=== PATIENT | male | born 1955 | race Caucasian/White ===

== ENCOUNTER 2017-03-27 11:36 | Emergency (ER) | payer OTHER ==
--- NOTE | 2017-03-27 13:30 | DIAGNOSTIC IMAGING REPORT ---
PROCEDURE: CT ABDOMEN/PELVIS W/O CONTRAST INDICATION: Left flank pain. Initial encounter. TECHNIQUE: Noncontrast axial images were obtained of the entire abdomen and pelvis with sagittal and coronal reformations. COMPARISON: None. FINDINGS: ABDOMEN: Normal kidneys and ureters without calculi or hydronephrosis. Calcified hepatic granuloma. The gallbladder, pancreas, spleen and adrenal glands are normal. Mild atherosclerosis of the aorta. Nonspecific bowel gas pattern. Minor right basilar scarring. Heart size is normal. PELVIS: 1.5 cm right bladder subtle radiodensity. Mildly enlarged prostate (5 cm). Normal appendix. No inflammatory changes or free fluid. Mild degenerative changes of the spine. IMPRESSION: 1. No evidence of urinary calculi or hydronephrosis 2. 1.5 cm right bladder subtle radiodensity. This could represent a hematoma or possibly a bladder mass. Recommend bladder ultrasound. 3. Enlarged prostate 4. Results discussed with Dr. Pérez. All CT scans at this facility use dose modulation, iterative reconstruction, and/or weight-based dosing when appropriate to reduce radiation dose to as low as reasonably achievable.
--- NOTE | 2017-03-27 16:00 | DIAGNOSTIC IMAGING REPORT ---
PROCEDURE: US ABDOMEN ULTRASOUND-LIMITED INDICATION: PAIN TECHNIQUE: Paul scale and color Doppler sonographic images of the abdomen were obtained without comparison. COMPARISON: Abdominal CT 03/27/2017 FINDINGS: The liver is normal in size, contour, and echotexture. No mass or intrahepatic biliary dilatation. The gallbladder is normal without stones or sludge. The wall is normal thickness measuring 2.7 mm No pericholecystic fluid or Chan sign. The extrahepatic common duct is normal measuring 4.6 The pancreas is not well seen. The abdominal aorta is normal in its course and caliber. The retrohepatic inferior vena cava is patent. There is appropriate hepatopetal flow in the portal vein. The right kidney measures 10.5 cm in length. There is no perihepatic or perisplenic ascites. IMPRESSION: 1. Normal abdominal ultrasound.
--- NOTE | 2017-03-27 16:53 | ED NURSING NOTES ---
Clinical Report - Nurses [facility] [address] [place] [address] 03/27/2017 11:41 Patient: ANGE ABERNATHY TRIAGE Triage time 1150 AM. Acuity: LEVEL 3. Chief Complaint: ABDOMINAL PAIN. Alert. No acute distress. SEPSIS SCREEN: Sepsis Screen. Negative (no infection suspected/documented). SHANTE COMA SCORE: Shante Coma Scale: 15- eyes open spontaneously (4); best verbal response- oriented x 4 (5); best motor response- obeys commands (6). --12:00 Jackie Wilkins R.N. 11:48 03/27/17. BP: 129/80 (regular adult cuff) taken on the left arm, via an automated monitor, while lying. HR: 81. RR: 14. O2 saturation: 99% on room air. Temp: 98.7 F (oral). Pain level now: 03/28. --12:00 Jackie Wilkins R.N. Weight: 76.3 kg measured. Height/Length: 72 inches Per Patient. BMI: 22.8. --11:48 Jackie Wilkins R.N. Medications None. --11:52 Jackie Wilkins R.N. Allergies No Known Drug Allergy. --11:52 Jackie Wilkins R.N. Medication/allergy information source: the patient. --12:00 Jackie Wilkins R.N. History Arrived by private vehicle. Historian: patient. Accompanied by friend. Primary physician (None). ( Pt states about 4 days ago started to have left flank/back pain that shoots and radiates to his mid ribs. Moving makes it worst, and laying down seems to calm the pain. Pt noted to have "blood in my urine, pretty bloody" since the pain started (4 days ago) denies burning/frequency or pain upon urination. Denies any SOB, fever or chills. Pt does admit not being to a doctor for about 20 years. Here for further evaluation). The patient has had abdominal pain. Last oral intake by patient was dinner. Treatment CHILD CARE DEVELOPMENT SPECIALIST: None. PAST MEDICAL HX: Immunizations: status is unknown. SOCIAL HX: Heavy tobacco smoker (cigarette)- less than 1 pack per day. History of heavy drug use: marijuana. No alcohol use. No recent travel. No infectious disease exposure. SELF HARM ASSESSMENT: A self harm assessment was performed. The patient answered "no" to the question "Do you have thoughts of harming or killing yourself?" and "Have you recently had thoughts about harming or killing others?". FALL RISK ASSESSMENT: Fall risk assessment completed. No fall risk identified. NUTRITIONAL RISK ASSESSMENT: The nutritional risk assessment revealed no deficiencies. FUNCTIONAL ASSESSMENT: Functional assessment: no impairments noted. LEARNING NEEDS ASSESSMENT: The learning needs assessment revealed no barriers. SKIN INTEGRITY ASSESSMENT: Skin integrity risk assessment completed. No skin integrity risk identified. --12:00 Jackie Wilkins R.N. PROBLEMS: Anxiety Reaction. --11:59 Jackie Wilkins R.N. ADDITIONAL SURGERIES: no known surgeries. Interventions ID band on patient. --12:00 Jackie Wilkins R.N. PHYSICAL ASSESSMENT Ambulatory to room. GENERAL / NEURO / PSYCH: Alert. Oriented X 4. Appears in pain. HEENT: Mucous membranes are pink. RESPIRATORY: Respirations not labored. Breath sounds within normal limits. CVS: Capillary refill less than 2 seconds. GI / : Abdomen soft and nontender. Bowel sounds within normal limits. SKIN: Skin is warm and dry. --12:01 Jackie Wilkins R.N. NURSING PROGRESS NOTES 11:56 03/27/2017 Site #1 started via IV in the left antecubital space with an 20g angiocath; one attempt. Blood drawn: rainbow set. Labeled in the presence of the patient and sent to the lab. --12:01 Jackie Wilkins R.N. The initial plan of care for this patient has been created This plan of care was discussed with the patient. Patient gowned. Warming measures: blanket applied. Reassurance given. Two patient identifiers checked. Call light placed in reach. Side rails up x 1. Bed placed in lowest position. Brakes of bed on. Patient ready for evaluation- ED physician notified. --12:01 Jackie Wilkins R.N. 12:25 03/27/2017 Started bag #1 1000 mL IV Fluids IV NS (Saline); at 1000 mL/hr over 1 hour(s) via site #1 via IV pump. Allergies verified and confirmed 5 rights. IV patency established. IV site checked: no pain, redness, or swelling. IV flushed thoroughly pre- and post-medication administration. --12:25 Mercedes Martinez R.N. Patient transported to CT. (1242 PM). --12:48 Jackie Wilkins R.N. Patient returned from CT. (1251 PM). --12:51 Jackie Wilkins R.N. 12:55 03/27/17. BP: 129/74. HR: 78. RR: 14. O2 saturation: 100% on room air. Pain level now: 5/10. --12:56 Jackie Wilkins R.N. Reassurance given. The patient is calm and resting quietly. ( IV infusing, waiting on UA, will continue to monitor). GI / : The patient reports abdominal pain. Denies nausea. Call light placed in reach. Side rails up x 1. Bed placed in lowest position. Brakes of bed on. --12:56 Jackie Wilkins R.N. 13:22 03/27/2017 IV Fluids IV NS Discontinued: bag #1 completed. Total amount infused: 1000 mL. IV patency established. IV site checked: no pain, redness, or swelling. IV flushed thoroughly. --13:22 Jackie Wilkins R.N. Reassurance given. Reassessment after fluids administered. He is calm and resting quietly. Overall patient status is improved- he states feels better. GI / : Denies nausea or diarrhea. Call light placed in reach. Bed placed in lowest position. Patient waiting for radiology and CT results and disposition. --15:01 Jackie Wilkins R.N. 15:00 03/27/17. BP: 131/73. HR: 70. RR: 15. O2 saturation: 98%. Temp: 97.8 F (oral). Pain level now: 0/10. --15:01 Jackie Wilkins R.N. ( Pt aware of having to re do the US due to the gallbladder being scan instead of his bladder. Pt aware. Will monitor). --15:38 Jackie Wilkins R.N. DISPOSITION / DISCHARGE No learning barriers present. Discharge instructions provided and reviewed with the patient and spouse. Reviewed medication(s) side effects, precautions, dosing and course information. Prescription(s) given to the patient. Patient and spouse verbalized understanding. Written instructions provided in Andorran. The patient was discharged by the physician. He was discharged home and accompanied by spouse. He left the Emergency Department ambulatory and via private vehicle. Spouse driving. ( pt up voiding upon dispo, denies pain at this time, dc instructions and rx given to pt.). --17:09 Ace Kenyon R.N. 17:06 03/27/17. BP: 128/71. HR: 77. RR: 17. O2 saturation: 98%. Temp: 98.1 F. Pain level now: 0/10. --17:09 Ace Kenyon R.N. Departure time: 1709. --17:09 Ace Kenyon R.N. Locked/Released at 03/27/2017 17:31 by Jackie Wilkins R.N.
--- NOTE | 2017-03-27 16:53 | ED CLINICAL REPORT ---
Clinical Report - Physicians/Mid Levels [facility] [address] [place] [address] 03/27/2017 11:41 [id number] *This is a preliminary document and is subject to change Time Seen: 12:09; initial patient contact. LABS, X-RAYS, AND EKG Abdominal Sonogram: (1. Right bladder mass highly suspicious for a neoplasm. Recommend cystoscopy and consultation.). Study included the pelvis. Prior studies were not available for comparison. The study was interpreted by the radiologist and discussed with the radiologist. Interpretation time: 16:52. Laboratory Tests: UA-Culture if indicated: (MILA: 03/27/2017 13:30) ( MsgRcvd 03/27/2017 13:58) Final results Test Result Flag Units (Reference) URINE COLOR SHALA URINE APPEARANCE CLOUDY URINE GLUCOSE NEGATIVE (NEGATIVE) URINE BILIRUBIN ICTOTEST NEGATIVE (NEGATIVE) URINE KETONE NEGATIVE (NEGATIVE) URINE SPECIFIC GRAVITY 1.025 (1.010-1.030) URINE PH 6.0 (5.0-8.0) URINE PROTEIN 2+ (NEGATIVE) URINE UROBILINOGEN 1.0 EU/dL (0.2-1.0) URINE NITRITE NEGATIVE (NEGATIVE) URINE BLOOD 3+ (NEGATIVE) URINE LEUK ESTERASE TRACE (NEGATIVE) URINE RBC >100 (TNTC) rbc/hpf (0-1) URINE WBC 3-5 wbc/hpf (0-1) URINE EPITHELIAL CELLS RARE EPI/hpf (0-5) URINE BACTERIA NONE SEEN (NONE SEEN) URINE COMMENT CULTURE INDICATED URINE CULTURES ARE SET-UP BASED ON THE FOLLOWING CRITERIA:POSITIVE NITRITEPOSITIVE LEUKOCYTE ESTERASEGREATER THAN 10 WHITE BLOOD CELLSMODERATE (2+) OR GREATER BACTERIA CBC w Diff: (MILA: 03/27/2017 11:50) ( MsgRcvd 03/27/2017 12:25) Final results Test Result Flag Units (Reference) WHITE BLOOD COUNT 8.4 K/uL (4.5-11.5) RED BLOOD COUNT 4.92 M/uL (4.50-5.90) HEMOGLOBIN 15.0 gm/dL (13.5-17.5) HEMATOCRIT 44.6 % (41.0-53.0) MEAN CELL VOLUME 91 fL (80-100) MEAN CORPUSCULAR HGB 31 pg (26-34) MEAN CORPUSCULAR HGB CONC 34 g/dL (31-37) RED CELL DISTRIBUTION WIDTH 13.3 % (11.6-14.8) PLATELET COUNT 288 K/uL (150-400) NEUTROPHIL % 76.3 H % (50-75) LYMPH % 17.3 L % (25-40) MONO % 5.1 % (3-14) EOSINOPHIL % 1.0 % (0-4) BASOPHIL % 0.3 % (0-2) CMP: (MILA: 03/27/2017 11:50) ( MsgRcvd 03/27/2017 12:35) Final results Test Result Flag Units (Reference) GLUCOSE 128 H mg/dL (70-110) BUN 14 mg/dL (7-18) CREATININE 1.1 mg/dL (0.6-1.3) Estimated GFR >60 mL/min Estimated GFR- >60 mL/min Note: Persistent reduction over 3 months in eGFR<60 mL/min/1.73 m2 defines CKD. Patients with eGFR values>=60 mL/min/1.73 m2 may also have CKD if evidence ofpersistent proteinuria. Additional information may be foundat [email or web address].org. SODIUM 141 mmol/L (136-145) POTASSIUM 3.8 mmol/L (3.5-5.1) CHLORIDE 104 mmol/L (98-107) CARBON DIOXIDE 28 mmol/L (21-32) CALCIUM 8.5 mg/dL (8.5-10.1) TOTAL PROTEIN 7.4 g/dL (6.4-8.2) ALBUMIN 3.5 g/dL (3.3-5.0) BILIRUBIN, TOTAL 0.6 mg/dL (0.0-1.0) ALKALINE PHOSPHATASE 82 U/L (46-116) AST (SGOT) 17 U/L (15-37) ALT (SGPT) 21 U/L (12-78) . Markie Pérez Dr.
--- NOTE | 2017-03-27 16:53 | ED ORDER SUMMARY ---
..... Patient: ANGE ABERNATHY OrderSheet [facility] VisitID: [id number] [place] [address] 61y, M Registration Date/Time: 03/27/2017 ORDER SHEET Weight: 76.3 kg (measured) Allergies: No Known Drug Allergy GENERAL ORDERS: CT Abd/Pel wo Cont (Left flank pain) Urgent (12:17 03/27/2017 Art Townsend) (Ack 12:18 [facility]) (12:48 EHassan R.N.) CBC w Diff Urgent (12:18 03/27/2017 Art Townsend) (Ack 12:18 [facility]) (12:21 SRoberts R.N.) CMP Urgent (12:18 03/27/2017 Art Townsend) (Ack 12:18 [facility]) (12:21 SRoberts R.N.) UA-Culture if indicated Urgent (12:18 03/27/2017 Art Townsend) (Ack 12:18 [facility]) (13:53 EHassan R.N.) US Abdomen Limited (No) (Bladder only to evaluate findings on CT) Urgent (13:07 03/27/2017 Art Townsend) (Ack 13:08 [facility]) (14:35 EHassan R.N.) MEDICATION ORDERS: IV FLUIDS: IV NS : initial bolus none -, then 1000 mL/hr for X1 (NOW) (12:13 03/27/2017 Art Townsend) (12:25 SRoberts R.N.) ORDER SHEET NOTES: This document has not been locked and should not be saved in the medical record.
--- NOTE | 2017-03-27 16:53 | ED CLINICAL REPORT ---
Clinical Report - Physicians/Mid Levels [facility] [address] [place] [address] 03/27/2017 11:41 [id number] *This is a preliminary document and is subject to change Time Seen: 12:09; initial patient contact. LABS, X-RAYS, AND EKG Abdominal Sonogram: (1. Right bladder mass highly suspicious for a neoplasm. Recommend cystoscopy and consultation.). Study included the pelvis. Prior studies were not available for comparison. The study was interpreted by the radiologist and discussed with the radiologist. Interpretation time: 16:52. Laboratory Tests: UA-Culture if indicated: (MILA: 03/27/2017 13:30) ( MsgRcvd 03/27/2017 13:58) Final results Test Result Flag Units (Reference) URINE COLOR SHALA URINE APPEARANCE CLOUDY URINE GLUCOSE NEGATIVE (NEGATIVE) URINE BILIRUBIN ICTOTEST NEGATIVE (NEGATIVE) URINE KETONE NEGATIVE (NEGATIVE) URINE SPECIFIC GRAVITY 1.025 (1.010-1.030) URINE PH 6.0 (5.0-8.0) URINE PROTEIN 2+ (NEGATIVE) URINE UROBILINOGEN 1.0 EU/dL (0.2-1.0) URINE NITRITE NEGATIVE (NEGATIVE) URINE BLOOD 3+ (NEGATIVE) URINE LEUK ESTERASE TRACE (NEGATIVE) URINE RBC >100 (TNTC) rbc/hpf (0-1) URINE WBC 3-5 wbc/hpf (0-1) URINE EPITHELIAL CELLS RARE EPI/hpf (0-5) URINE BACTERIA NONE SEEN (NONE SEEN) URINE COMMENT CULTURE INDICATED URINE CULTURES ARE SET-UP BASED ON THE FOLLOWING CRITERIA:POSITIVE NITRITEPOSITIVE LEUKOCYTE ESTERASEGREATER THAN 10 WHITE BLOOD CELLSMODERATE (2+) OR GREATER BACTERIA CBC w Diff: (MILA: 03/27/2017 11:50) ( MsgRcvd 03/27/2017 12:25) Final results Test Result Flag Units (Reference) WHITE BLOOD COUNT 8.4 K/uL (4.5-11.5) RED BLOOD COUNT 4.92 M/uL (4.50-5.90) HEMOGLOBIN 15.0 gm/dL (13.5-17.5) HEMATOCRIT 44.6 % (41.0-53.0) MEAN CELL VOLUME 91 fL (80-100) MEAN CORPUSCULAR HGB 31 pg (26-34) MEAN CORPUSCULAR HGB CONC 34 g/dL (31-37) RED CELL DISTRIBUTION WIDTH 13.3 % (11.6-14.8) PLATELET COUNT 288 K/uL (150-400) NEUTROPHIL % 76.3 H % (50-75) LYMPH % 17.3 L % (25-40) MONO % 5.1 % (3-14) EOSINOPHIL % 1.0 % (0-4) BASOPHIL % 0.3 % (0-2) CMP: (MILA: 03/27/2017 11:50) ( MsgRcvd 03/27/2017 12:35) Final results Test Result Flag Units (Reference) GLUCOSE 128 H mg/dL (70-110) BUN 14 mg/dL (7-18) CREATININE 1.1 mg/dL (0.6-1.3) Estimated GFR >60 mL/min Estimated GFR- >60 mL/min Note: Persistent reduction over 3 months in eGFR<60 mL/min/1.73 m2 defines CKD. Patients with eGFR values>=60 mL/min/1.73 m2 may also have CKD if evidence ofpersistent proteinuria. Additional information may be foundat [email or web address]. SODIUM 141 mmol/L (136-145) POTASSIUM 3.8 mmol/L (3.5-5.1) CHLORIDE 104 mmol/L (98-107) CARBON DIOXIDE 28 mmol/L (21-32) CALCIUM 8.5 mg/dL (8.5-10.1) TOTAL PROTEIN 7.4 g/dL (6.4-8.2) ALBUMIN 3.5 g/dL (3.3-5.0) BILIRUBIN, TOTAL 0.6 mg/dL (0.0-1.0) ALKALINE PHOSPHATASE 82 U/L (46-116) AST (SGOT) 17 U/L (15-37) ALT (SGPT) 21 U/L (12-78) . Markie Pérez Dr.
--- NOTE | 2017-03-27 16:53 | ED ORDER SUMMARY ---
..... Patient: ANGE ABERNATHY OrderSheet [facility] VisitID: [id number] [place] [address] 61y, M Registration Date/Time: 03/27/2017 ORDER SHEET Weight: 76.3 kg (measured) Allergies: No Known Drug Allergy GENERAL ORDERS: CT Abd/Pel wo Cont (Left flank pain) Urgent (12:17 03/27/2017 Art Townsend) (Ack 12:18 [facility]) (12:48 EHassan R.N.) CBC w Diff Urgent (12:18 03/27/2017 Art Townsend) (Ack 12:18 [facility]) (12:21 SRoberts R.N.) CMP Urgent (12:18 03/27/2017 Art Townsend) (Ack 12:18 [facility]) (12:21 SRoberts R.N.) UA-Culture if indicated Urgent (12:18 03/27/2017 Art Townsend) (Ack 12:18 [facility]) (13:53 EHassan R.N.) US Abdomen Limited (No) (Bladder only to evaluate findings on CT) Urgent (13:07 03/27/2017 Art Townsend) (Ack 13:08 [facility]) (14:35 EHassan R.N.) MEDICATION ORDERS: IV FLUIDS: IV NS : initial bolus none -, then 1000 mL/hr for X1 (NOW) (12:13 03/27/2017 Art Townsend) (12:25 SRoberts R.N.) ORDER SHEET NOTES: This document has not been locked and should not be saved in the medical record.
--- NOTE | 2017-03-28 20:39 | ED DISCHARGE INSTRUCTIONS ---
Patient: ANGE ABERNATHY General Instructions [facility] VisitID: [id number] [place] [address] 61y, M Registration Date/Time: 03/27/2017 Gross hematuria (Bladder neoplasm). INSTRUCTIONS Drink plenty of fluids. Your Current Medications: CONTINUE TAKING THE FOLLOWING MEDICATIONS: None*. Prescription Medications: Hydrocodone/APAP 5mg / 325mg: take 1 orally every 6 hours as needed for pain. Dispense twenty (20). No refill. Follow-up: Screening today revealed the patient's blood pressure to be in the pre-hypertensive range. The patient should follow up with a primary care provider for blood pressure management. Follow-up with: Ovidio Ponce MD, Urology, , [address] [facility] [facility] [place], [id number] Follow up in about two days. Call for an appointment. ADDITIONAL INFORMATION Blood In The Urine Blood in the urine ("hematuria") has many possible causes. If it occurs after an injury (such as a car accident or fall), it is most often a sign of bruising to the kidney or bladder. Common medical causes of blood in the urine include urinary tract infection, kidney stone, inflammation, tumors, or certain other diseases of the kidney or bladder. Menstruation can cause blood to appear in the urine sample, although it is not coming from the urinary tract. If only a trace amount of blood is present, it will show up on the urine test, even though the urine may be yellow and not pink or red. This may occur with any of the above conditions, as well as heavy exercise or high fever. In this case, your doctor may want to repeat the urine test on another day. This will show if the blood is still present. If so, then other tests can be done to find out the cause. Home Care: If your urine does not appear bloody (pink, brown or red) then you do not need to restrict your activity in any way. If you can see blood in your urine, rest and avoid heavy exertion until your next exam. Do not use aspirin or anti-inflammatory medicine like ibuprofen (Motrin, Advil) or naproxen (Naprosyn, Aleve). These thin the blood and may increase bleeding. Follow Up with your doctor or as advised by our staff. If you were injured and had blood in your urine, you should have a repeat urine test in 1-2 days. Contact your doctor or return to this facility for this test. [NOTE: A radiologist will review any X-rays that were taken. We will notify you of any new findings that may affect your care.] Get Prompt Medical Attention if any of the following occur: Bright red blood or blood clots in the urine (if a new symptom) Weakness, dizziness or fainting New groin, abdominal or back pain Fever of 100.4F (38C) or higher, or as directed by your healthcare provider Repeated vomiting Bleeding from nose, gums or easy bruising Hydrocodone Bitartrate, Acetaminophen Oral tablet What is this medicine? ACETAMINOPHEN; HYDROCODONE (a set a LINO bryant fen; lisa droe KOE done) is a pain reliever. It is used to treat mild to moderate pain. How should I use this medicine? Take this medicine by mouth. Swallow it with a full glass of water. Follow the directions on the prescription label. If the medicine upsets your stomach, take the medicine with food or milk. Do not take more than you are told to take. Talk to your neonatal doctor regarding the use of this medicine in children. This medicine is not approved for use in children. What side effects may I notice from receiving this medicine? Side effects that you should report to your doctor or health care giver as soon as possible: allergic reactions like skin rash, itching or hives, swelling of the face, lips, or tongue breathing problems confusion feeling faint or lightheaded, falls stomach pain yellowing of the eyes or skin Side effects that usually do not require medical attention (report to your doctor or health care giver if they continue or are bothersome): nausea, vomiting stomach upset What may interact with this medicine? alcohol antihistamines isoniazid medicines for depression, anxiety, or psychotic disturbances medicines for sleep muscle relaxants naltrexone narcotic medicines (opiates) for pain phenobarbital ritonavir tramadol What if I miss a dose? If you miss a dose, take it as soon as you can. If it is almost time for your next dose, take only that dose. Do not take double or extra doses. Where should I keep my medicine? Keep out of the reach of children. This medicine can be abused. Keep your medicine in a safe place to protect it from theft. Do not share this medicine with anyone. Selling or giving away this medicine is dangerous and against the law. Store at room temperature between 15 and 30 degrees C (59 and 86 degrees F). Protect from light. Keep container tightly closed. Throw away any unused medicine after the expiration date. Discard unused medicine and used packaging carefully. Pets and children can be harmed if they find used or lost packages. What should I tell my health care provider before I take this medicine? They need to know if you have any of these conditions: brain tumor Crohn's disease, inflammatory bowel disease, or ulcerative colitis drink more than 3 alcohol-containing drinks per day drug abuse or addiction head injury heart or circulation problems kidney disease or problems going to the bathroom liver disease lung disease, asthma, or breathing problems an unusual or allergic reaction to acetaminophen, hydrocodone, other opioid analgesics, other medicines, foods, dyes, or preservatives or trying to get breast-feeding What should I watch for while using this medicine? Tell your doctor or health care giver if your pain does not go away, if it gets worse, or if you have new or a different type of pain. You may develop tolerance to the medicine. Tolerance means that you will need a higher dose of the medicine for pain relief. Tolerance is normal and is expected if you take the medicine for a long time. Do not suddenly stop taking your medicine because you may develop a severe reaction. Your body becomes used to the medicine. This does NOT mean you are addicted. Addiction is a behavior related to getting and using a drug for a non-medical reason. If you have pain, you have a medical reason to take pain medicine. Your doctor will tell you how much medicine to take. If your doctor wants you to stop the medicine, the dose will be slowly lowered over time to avoid any side effects. You may get drowsy or dizzy when you first start taking the medicine or change doses. Do not drive, use machinery, or do anything that may be dangerous until you know how the medicine affects you. Stand or sit up slowly. There are different types of narcotic medicines (opiates) for pain. If you take more than one type at the same time, you may have more side effects. Give your health care provider a list of all medicines you use. Your doctor will tell you how much medicine to take. Do not take more medicine than directed. Call emergency for help if you have problems breathing. The medicine will cause constipation. Try to have a bowel movement at least every 2 to 3 days. If you do not have a bowel movement for 3 days, call your doctor or health care giver. Too much acetaminophen can be very dangerous. Do not take Tylenol (acetaminophen) or medicines that contain acetaminophen with this medicine. Many non-prescription medicines contain acetaminophen. Always read the labels carefully. You have been given the following additional information: Hematuria Hydrocodone Bitartrate, Acetaminophen Oral tablet (Electronically signed by Markie Pérez Dr. 03/28/2017 20:39)
--- NOTE | 2017-03-28 20:39 | ED DISCHARGE INSTRUCTIONS ---
Patient: ANGE ABERNATHY General Instructions [facility] VisitID: [id number] [place] [address] 61y, M Registration Date/Time: 03/27/2017 Gross hematuria (Bladder neoplasm). INSTRUCTIONS Drink plenty of fluids. Your Current Medications: CONTINUE TAKING THE FOLLOWING MEDICATIONS: None*. Prescription Medications: Hydrocodone/APAP 5mg / 325mg: take 1 orally every 6 hours as needed for pain. Dispense twenty (20). No refill. Follow-up: Screening today revealed the patient's blood pressure to be in the pre-hypertensive range. The patient should follow up with a primary care provider for blood pressure management. Follow-up with: Ovidio Ponce MD, Urology, , [address] [place], [id number] Follow up in about two days. Call for an appointment. ADDITIONAL INFORMATION Blood In The Urine Blood in the urine ("hematuria") has many possible causes. If it occurs after an injury (such as a car accident or fall), it is most often a sign of bruising to the kidney or bladder. Common medical causes of blood in the urine include urinary tract infection, kidney stone, inflammation, tumors, or certain other diseases of the kidney or bladder. Menstruation can cause blood to appear in the urine sample, although it is not coming from the urinary tract. If only a trace amount of blood is present, it will show up on the urine test, even though the urine may be yellow and not pink or red. This may occur with any of the above conditions, as well as heavy exercise or high fever. In this case, your doctor may want to repeat the urine test on another day. This will show if the blood is still present. If so, then other tests can be done to find out the cause. Home Care: If your urine does not appear bloody (pink, brown or red) then you do not need to restrict your activity in any way. If you can see blood in your urine, rest and avoid heavy exertion until your next exam. Do not use aspirin or anti-inflammatory medicine like ibuprofen (Motrin, Advil) or naproxen (Naprosyn, Aleve). These thin the blood and may increase bleeding. Follow Up with your doctor or as advised by our staff. If you were injured and had blood in your urine, you should have a repeat urine test in 1-2 days. Contact your doctor or return to this facility for this test. [NOTE: A radiologist will review any X-rays that were taken. We will notify you of any new findings that may affect your care.] Get Prompt Medical Attention if any of the following occur: Bright red blood or blood clots in the urine (if a new symptom) Weakness, dizziness or fainting New groin, abdominal or back pain Fever of 100.4F (38C) or higher, or as directed by your healthcare provider Repeated vomiting Bleeding from nose, gums or easy bruising Hydrocodone Bitartrate, Acetaminophen Oral tablet What is this medicine? ACETAMINOPHEN; HYDROCODONE (a set a LINO bryant fen; lisa droe KOE done) is a pain reliever. It is used to treat mild to moderate pain. How should I use this medicine? Take this medicine by mouth. Swallow it with a full glass of water. Follow the directions on the prescription label. If the medicine upsets your stomach, take the medicine with food or milk. Do not take more than you are told to take. Talk to your kitchen assistant regarding the use of this medicine in children. This medicine is not approved for use in children. What side effects may I notice from receiving this medicine? Side effects that you should report to your doctor or health healthcare social worker as soon as possible: allergic reactions like skin rash, itching or hives, swelling of the face, lips, or tongue breathing problems confusion feeling faint or lightheaded, falls stomach pain yellowing of the eyes or skin Side effects that usually do not require medical attention (report to your doctor or health healthcare social worker if they continue or are bothersome): nausea, vomiting stomach upset What may interact with this medicine? alcohol antihistamines isoniazid medicines for depression, anxiety, or psychotic disturbances medicines for sleep muscle relaxants naltrexone narcotic medicines (opiates) for pain phenobarbital ritonavir tramadol What if I miss a dose? If you miss a dose, take it as soon as you can. If it is almost time for your next dose, take only that dose. Do not take double or extra doses. Where should I keep my medicine? Keep out of the reach of children. This medicine can be abused. Keep your medicine in a safe place to protect it from theft. Do not share this medicine with anyone. Selling or giving away this medicine is dangerous and against the law. Store at room temperature between 15 and 30 degrees C (59 and 86 degrees F). Protect from light. Keep container tightly closed. Throw away any unused medicine after the expiration date. Discard unused medicine and used packaging carefully. Pets and children can be harmed if they find used or lost packages. What should I tell my health care provider before I take this medicine? They need to know if you have any of these conditions: brain tumor Crohn's disease, inflammatory bowel disease, or ulcerative colitis drink more than 3 alcohol-containing drinks per day drug abuse or addiction head injury heart or circulation problems kidney disease or problems going to the bathroom liver disease lung disease, asthma, or breathing problems an unusual or allergic reaction to acetaminophen, hydrocodone, other opioid analgesics, other medicines, foods, dyes, or preservatives or trying to get breast-feeding What should I watch for while using this medicine? Tell your doctor or health healthcare social worker if your pain does not go away, if it gets worse, or if you have new or a different type of pain. You may develop tolerance to the medicine. Tolerance means that you will need a higher dose of the medicine for pain relief. Tolerance is normal and is expected if you take the medicine for a long time. Do not suddenly stop taking your medicine because you may develop a severe reaction. Your body becomes used to the medicine. This does NOT mean you are addicted. Addiction is a behavior related to getting and using a drug for a non-medical reason. If you have pain, you have a medical reason to take pain medicine. Your doctor will tell you how much medicine to take. If your doctor wants you to stop the medicine, the dose will be slowly lowered over time to avoid any side effects. You may get drowsy or dizzy when you first start taking the medicine or change doses. Do not drive, use machinery, or do anything that may be dangerous until you know how the medicine affects you. Stand or sit up slowly. There are different types of narcotic medicines (opiates) for pain. If you take more than one type at the same time, you may have more side effects. Give your health care provider a list of all medicines you use. Your doctor will tell you how much medicine to take. Do not take more medicine than directed. Call emergency for help if you have problems breathing. The medicine will cause constipation. Try to have a bowel movement at least every 2 to 3 days. If you do not have a bowel movement for 3 days, call your doctor or health healthcare social worker. Too much acetaminophen can be very dangerous. Do not take Tylenol (acetaminophen) or medicines that contain acetaminophen with this medicine. Many non-prescription medicines contain acetaminophen. Always read the labels carefully. You have been given the following additional information: Hematuria Hydrocodone Bitartrate, Acetaminophen Oral tablet (Electronically signed by Markie Pérez Dr. 03/28/2017 20:39)
--- NOTE | 2017-03-28 20:39 | ED MAR SUMMARY ---
..... Medication Administration Record [facility] [address] [place] [address] Patient: ANGE ABERNATHY Visit ID: [id number] 61y, M Weight: 76.3 kg Height/Length: 72 in BMI: 22.8 ALLERGIES: No Known Drug Allergy Start 12:25 03/27/2017 Mercedes Martinez RRudy, Stop 13:22 03/27/2017 Jackie Wilkins RRudy Medication Administered: IV NS (SALINE), Dose: IV Fluids over 1 hour(s), Rate: 1000 mL/hr, Dispensed: 1000 mL bag, Site: #1 left AC. Medication Ordered: IV NS : initial bolus none -, then 1000 mL/hr for X1 (NOW).
--- NOTE | 2017-03-28 20:39 | ED MED RECONCILIATION SUMMARY ---
Patient: ANGE ABERNATHY Medication Reconciliation Report [facility] VisitID: [id number] [address] [place] [address] 61y, M Registration Date/Time: 03/27/2017 Weight: 76.3 kg Height/Length: 72 in. BMI: 22.8 ALLERGIES: No Known Drug Allergy The patient's Home Medications are listed below: NONE. The source(s) of the original Home Medication information: patient The following Medications were given to the patient in the Emergency Department: IV NS IV Fluids bolus 0, then 1000 mL/hr, administered: 03/27/2017 12:25:00 PM The following Medications were prescribed to the patient: Hydrocodone/APAP 5mg / 325mg: take 1 orally every 6 hours as needed for pain. Dispense twenty (20). No refill. -- Markie Pérez Dr.
--- NOTE | 2017-03-28 20:39 | ED MED RECONCILIATION SUMMARY ---
Patient: ANGE ABERNATHY Medication Reconciliation Report [facility] VisitID: [id number] [address] [place] [address] 61y, M Registration Date/Time: 03/27/2017 Weight: 76.3 kg Height/Length: 72 in. BMI: 22.8 ALLERGIES: No Known Drug Allergy The patient's Home Medications are listed below: NONE. The source(s) of the original Home Medication information: patient The following Medications were given to the patient in the Emergency Department: IV NS IV Fluids bolus 0, then 1000 mL/hr, administered: 03/27/2017 12:25:00 PM The following Medications were prescribed to the patient: Hydrocodone/APAP 5mg / 325mg: take 1 orally every 6 hours as needed for pain. Dispense twenty (20). No refill. -- Markie Pérez Dr.
--- NOTE | 2017-03-28 20:39 | ED MAR SUMMARY ---
..... Medication Administration Record [facility] [address] [place] [address] Patient: ANGE ABERNATHY Visit ID: [id number] 61y, M Weight: 76.3 kg Height/Length: 72 in BMI: 22.8 ALLERGIES: No Known Drug Allergy Start 12:25 03/27/2017 Mercedes Martinez RRudy, Stop 13:22 03/27/2017 Jackie Wilkins RRudy Medication Administered: IV NS (SALINE), Dose: IV Fluids over 1 hour(s), Rate: 1000 mL/hr, Dispensed: 1000 mL bag, Site: #1 left AC. Medication Ordered: IV NS : initial bolus none -, then 1000 mL/hr for X1 (NOW).
== END 2017-03-27 17:09 | disposition home or self-care (01) ==
LOC: ED SRH 11:36
DX: R31.0 Gross hematuria (principal); D49.4 Neoplasm of unspecified behavior of bladder; Z72.0 Tobacco use
CPT/HCPCS: 90004; 90100; 90469; 95059